=== PATIENT | female | born 2000 | race African-American/Black ===

== ENCOUNTER 2019-12-27 14:46 | Emergency (ER) | payer SELFPAY ==
[~2019-12-27] VITALS: Ht 157.5 cm; Wt 86.2 kg
[2019-12-27] MEDS ORDERED: KETOROLAC TROMETH 60MG/2ML VIAL IM ONE (16:45)
[2019-12-27 18:30] VITALS: BP 142/89
== END 2019-12-27 17:43 | disposition home or self-care (01) ==
LOC: ER 14:46
DX: M54.5 Low back pain (principal); M25.521 Pain in right elbow; Z88.0 Allergy status to penicillin; Z88.2 Allergy status to sulfonamides; Z88.1 Allergy status to other antibiotic agents; V49.9XXA Car occupant (driver) (passenger) injured in unspecified traffic accident, initial encounter; Y93.89 Activity, other specified; Y92.89 Other specified places as the place of occurrence of the external cause; Y99.8 Other external cause status
CPT/HCPCS: 71046; 72100; 73080